=== PATIENT | female | born 1985 | race American Indian/Alaskan Native ===

== ENCOUNTER 2020-03-29 14:35 | Outpatient (CLI) | payer MEDICAID ==
[2020-03-29 15:20] VITALS: BP 144/87
== END 2020-03-29 17:21 | disposition home or self-care (01) ==
LOC: TRG 14:35 → APU 14:36 → TRG 17:21
PROVIDERS: ATTEND Obstetrics & Gynecology
DX: O26.892 Other specified pregnancy related conditions, second trimester (principal); R10.30 Lower abdominal pain, unspecified; Z3A.27 27 weeks gestation of pregnancy
CPT/HCPCS: 59025